=== PATIENT | male | born 1980 | race Caucasian/White ===

== ENCOUNTER 2016-12-27 18:28 | Emergency (ER) | payer SELFPAY ==
[~2016-12-27] VITALS: Ht 188 cm; Wt 88.5 kg
[2016-12-27 18:55] LABS: Basophils # (auto) 0.1 uL; Basophils % (auto) 0.5 % (0.0-2.0); Eosinophils # (auto) 0.2 uL; Hematocrit 48.2 % (41.0-53.0); Lymphocytes # (auto) 3.4 uL; Lymphocytes % (auto) 18.9 % (10.0-50.0); Mean Corpuscular Hgb Conc. 33.2 g/dL (32.0-36.0); Mean Corpuscular Volume 87.4 fL (80.0-100.0); Mean Platelet Volume 7.3 fL (7.4-10.4); Monocytes # (auto) 0.8 uL; Monocytes % (auto) 4.4 % (0.0-12.0); Neutrophils # (auto) 13.4 uL; Neutrophils % (auto) 75.2 % (37.0-80.0); Platelet Count (auto) 424 10^3/uL (140-450); Red Cell Distribution Width 12.6 % (11.6-16.0); White Blood Cell 17.8 10^3/uL (4.4-10.8)
[2016-12-27 19:21] LABS: Albumin 3.8 g/dL (3.4-5.0); Alkaline Phosphatase 56 U/L (45-117); Anion Gap 12 (5-15); Aspartate Aminotransferase 11 U/L (15-37); BUN/Creatinine Ratio 7.7; Bilirubin, Total 0.5 mg/dL (0.2-1.0); Blood Urea Nitrogen 8 mg/dL (7-18); Carbon Dioxide 28 mmol/L (21-32); Chloride 104 mmol/L (98-107); GFR African American 103 mL/min; GFR Non-African American 85 mL/min; Glucose 97 mg/dL (74-106); Magnesium 2.3 mg/dL (1.6-2.6); Sodium 144 mmol/L (136-145); Total Protein 8.3 g/dL (6.4-8.2)
[2016-12-27] MEDS ORDERED: DOXYCYCLINE 100 MG TAB/CAP PO ONE (22:00)
[2016-12-27 22:37] VITALS: BP 138/98
== END 2016-12-27 22:38 | disposition home or self-care (01) ==
LOC: ER 18:28
DX: J18.9 Pneumonia, unspecified organism (principal); F17.210 Nicotine dependence, cigarettes, uncomplicated; I10 Essential (primary) hypertension
CPT/HCPCS: 36415; 71020; 80053; 83735; 84484; 85025; 93005